=== PATIENT | female | born 1990 | race African-American/Black ===

== ENCOUNTER 2020-03-10 16:08 | Emergency (ER) | payer OTHER, SELFPAY ==
--- NOTE | ~2020-03-10 | XR_ITS ---
EXAMINATION: XR chest 1V portable DATE: 03/10/2020 17:19 INDICATION: Central line placement. TECHNIQUE: A single frontal view of the chest was obtained. COMPARISON: None. FINDINGS: The chest demonstrates clear lungs without pneumonia, pleural effusion, or pneumothorax. Th e heart size is normal. A right upper extremity peripherally inserted central venous catheter (PICC) is seen with tip in the superior vena cava. IMPRESSION: 1. PICC tip in the superior vena cava. Reviewed, dictated and finalized at location A.
--- NOTE | ~2020-03-10 | XR_ITS ---
EXAMINATION: XR shoulder LT min 2V DATE: 03/10/2020 17:19 INDICATION: Left shoulder pain. TECHNIQUE: 4 views of left shoulder were obtained. COMPARISON: None. FINDINGS: Bone alignment is normal. No fracture. Joint spaces are well maintained. IMPRESSION: 1. Normal left shoulder. Reviewed, dictated and finalized at location A. IMPRESSION: 1. Normal left shoulder.
[2020-03-10 16:12] VITALS: BP 155/91; PULSE 106; RESP 18; TEMP 36.7; O2SAT 99
--- NOTE | 2020-03-10 16:20 | ED.GENADULT ---
HPI - General Adult General Chief complaint: Unspecified Stated complaint: Picc line will not flush Time Seen by Provider: 03/10/20 16:17 History of Present Illness HPI narrative: Patient is a 29 y/o female complaining of PICC problem starting today. She has right arm PICC placed approximately 3 weeks ago at [facility] [place] antibiotics for right foot osteomyelitis. She states that she was using one port for IV antibiotic today and it stopped running. However, she was able to use the other port to finish infusing her antibiotics. She also complains of chronic left shoulder pain, worse with movement for several months. Related Data Allergies Allergy/AdvReac Type Severity Reaction Status Date / Time No Known Allergies Allergy Verified 03/10/20 16:30 Review of Systems Constitutional: Constitutional: Denies chills, Denies fever(s), Denies headache(s) and Denies weakness Eyes: Eyes: Denies blurry vision ENT: Denies headache(s) and Denies neck pain Cardiovascular: Cardiovascular: Denies chest pain and Denies dyspnea Comments: one port of PICC line would not work Respiratory: Respiratory: Denies cough and Denies dyspnea Gastrointestinal: Gastrointestinal: Denies abdominal pain, Denies diarrhea, Denies nausea and Denies vomiting Genitourinary: Genitourinary: Denies hematuria and Denies dysuria Musculoskeletal: Musculoskeletal: Denies back pain, Reports arthralgias (left shoulder pain) and Denies neck pain Neurologic: Denies headache(s) and Denies weakness PMFSH Social History Social History Gender identity (if verbalized by the patient): Female Exam Const: General: no acute distress and well developed Orientation/consciousness: oriented to person, oriented to place, oriented to time and patient oriented x3 HENMT: Head: normocephalic Ears: external ears normal General nose exam: Normal external nose present Eyes: General: appearance normal, both eyes and all related structures Conjunctivae: conjunctivae normal Neck: Neck: normal visual inspection and full ROM Chest: Chest palpation & inspection: normal inspection of the chest and no tenderness Resp: Effort & Inspection: normal respiratory effort Auscultation: clear to auscultation bilaterally Cardio: Rate: regular rate Rhythm: regular rhythm GI: GI Palp: No abdominal tenderness and Yes Soft to palpation Skin: General skin exam: normal color and turgor normal Neuro: General: oriented to person, oriented to place, oriented to time and patient oriented x3 Cognition (Neuro): normal cognition Extrem: General: normal to inspection, full ROM and no pedal edema Right lower extremity: foot (s/p toe ampuation. Wound vac in place) Psych: Appearance: grossly normal Mental Status: mental status grossly normal Affect: normal affect Course Vital Signs Vital signs: Vital Signs Temperature 36.7 C 03/10/20 16:12 Pulse Rate 106 H 03/10/20 16:12 Respiratory Rate 18 03/10/20 16:12 Blood Pressure 155/91 H 03/10/20 16:12 Pulse Oximetry 99 03/10/20 16:12 Temperature 36.7 C 03/10/20 16:12 Pulse Rate 84 03/10/20 17:43 Respiratory Rate 18 03/10/20 17:43 Blood Pressure 146/93 H 03/10/20 17:43 Pulse Oximetry 98 03/10/20 17:43 Medical Decision Making Vital Signs Vital Signs: Vital Signs Temperature 36.7 C 03/10/20 16:12 Pulse Rate 106 H 03/10/20 16:12 Respiratory Rate 18 03/10/20 16:12 Blood Pressure 155/91 H 03/10/20 16:12 Pulse Oximetry 99 03/10/20 16:12 Temperature 36.7 C 03/10/20 16:12 Pulse Rate 84 03/10/20 17:43 Respiratory Rate 18 03/10/20 17:43 Blood Pressure 146/93 H 03/10/20 17:43 Pulse Oximetry 98 03/10/20 17:43 Discharge Plan Discharge Clinical Impression: PIC line (peripherally inserted central catheter) flush Left shoulder pain Qualifiers: Chronicity: chronic Qualified Code(s): M25.512 - Pain in left shoulder Instruction
--- NOTE | 2020-03-10 17:05 | PC.NURSE ---
able to flush 30 ml NS per line of PICC line no blood return provider aware
[2020-03-10 17:43] VITALS: BP 146/93; PULSE 84; RESP 18; O2SAT 98
== END 2020-03-10 17:44 | disposition home or self-care (01) ==
PROVIDERS: Emergency Provider Emergency Medicine
DX: T82.898A Other specified complication of vascular prosthetic devices, implants and grafts, initial encounter (principal); M25.512 Pain in left shoulder; M86.9 Osteomyelitis, unspecified
CPT/HCPCS: 71045; 73030; 99284